=== PATIENT | male | born 1960 | race Caucasian/White ===

== ENCOUNTER 2022-01-16 12:02 | Emergency (ER) | payer OTHER ==
[2022-01-16 13:17] LABS: HEMOGLOBIN 11.5 gm/dl (14.0-17.5); RED BLOOD COUNT 3.62 M/UL (4.20-5.50); WHITE BLOOD COUNT 11.3 K/UL (4.5-11.0)
[2022-01-16 13:56] LABS: BUN/CREATININE RATIO 17 (0-10)
[2022-01-16] MEDS ORDERED: HYDROCODON-ACE1 EAC4 PO (15:47)
== END 2022-01-16 16:25 | disposition home or self-care (01) ==
LOC: ER1 12:02
PROVIDERS: Emergency Medicine
DX: M25.461 Effusion, right knee (principal); I10 Essential (primary) hypertension; E07.9 Disorder of thyroid, unspecified
CPT/HCPCS: 73562; 80053; 84550; 85025; 85610; 85652; 85730; 86140; 99284